=== PATIENT | female | born 1940 | race Caucasian/White ===

== ENCOUNTER → 2016-12-24 | Outpatient (CLI) | payer OTHER ==
[~2016-12-24] MED LIST: HYDR-3240 PO; IBUP100T6 PO; LEVO50TA5 PO; LEVO750T26 PO; LEVO75TA PO; LIOT50TA2 PO; METO25TA35 PO
== END | disposition home or self-care (01) ==
LOC: CFH 12:24 → EDSTATUS 12:30
PROVIDERS: ATTEND Internal Medicine Cardiovascular Disease
DX: J90 Pleural effusion, not elsewhere classified (principal); I07.1 Rheumatic tricuspid insufficiency; N85.4 Malposition of uterus; Z80.41 Family history of malignant neoplasm of ovary
CPT/HCPCS: 71020; 76830; 93306

== ENCOUNTER 2018-02-23 10:10 | Inpatient (IN) | payer OTHER, MEDICARE ==
[~2018-02-23] VITALS: Ht 160 cm; Wt 70.2 kg
[2018-02-23] MEDS ORDERED: KETOROLAC 30 MG/1 ML ONE (10:48)
[2018-02-23 10:58] LABS: BASOPHILS # (AUTO) 0.04 x10^3/uL (0-0.1); BASOPHILS % (AUTO) 0 % (0-1); EOSINOPHILS # (AUTO) 0.08 x10^3/uL (0-0.4); EOSINOPHILS % (AUTO) 1 % (1-7); LYMPHOCYTES # (AUTO) 1.57 x10^3/uL (1-3.4); LYMPHOCYTES % (AUTO) 19 % (22-44); MD NO; MEAN CORPUSCULAR HEMOGLOBIN 31.4 pg (27.0-34.8); MEAN CORPUSCULAR HGB CONC 33.9 g/dL (32.4-35.8); MEAN CORPUSCULAR VOLUME 92.6 fL (80-100); MEAN PLATELET VOLUME 8.4 fL (7.4-10.4); MONOCYTES # (AUTO) 0.87 x10^3/uL (0.2-0.8); MONOCYTES % (AUTO) 10 % (2-9); NEUTROPHILS # (AUTO) 5.96 x10^3/uL (1.8-6.8); NEUTROPHILS % (AUTO) 70 % (42-75); PLATELET COUNT 287 x10^3/uL (130-400); RED BLOOD COUNT 4.74 x10^6/uL (3.82-5.3); RED CELL DISTRIBUTION WIDTH 13.9 % (9.6-15.2)
[2018-02-23] MEDS ORDERED: KETOROLAC 30 MG/1 ML IVPush ONE (11:00)
[2018-02-23 11:10] LABS: ALANINE AMINOTRANSFERASE 26 U/L (12-78); ALBUMIN 3.5 g/dL (3.4-5.0); ANION GAP 10 mmol/L (5-15); CHLORIDE 108 mmol/L (98-107)
[2018-02-23 11:14] LABS: ALKALINE PHOSPHATASE 109 U/L (45-117); BILIRUBIN,TOTAL 0.6 mg/dL (0.2-1.0); TOTAL PROTEIN 7.5 g/dL (6.4-8.2); TROPONIN I < 0.015 ng/mL (0.000-0.045)
[2018-02-23] MEDS ORDERED: HEPARIN 5,000 UNITS/ML, 1ML SQ SCH (13:30)
[2018-02-23] MEDS ORDERED: hydrALAzine 20 MG/ML, 1ML IVPush PRN (13:30)
[2018-02-23] MEDS ORDERED: ACETAMINOPHEN 325 MG TABLET PO PRN (13:30)
[2018-02-23] MEDS ORDERED: LABETALOL 5MG/ML, 20ML IVPush PRN (13:30)
[2018-02-23 13:50] LABS: TROPONIN I < 0.015 ng/mL (0.000-0.045)
[2018-02-23 14:46] VITALS: BP 110/77
[2018-02-23] MEDS ORDERED: LIOT5TAB3 PO (14:52)
[2018-02-23] MEDS ORDERED: ATOR20TA PO (14:55)
[2018-02-23] MEDS: RIVAROXABAN 15 MG TABLET PO SCH (17:06)
[2018-02-23 19:30] LABS: TROPONIN I < 0.015 ng/mL (0.000-0.045)
[2018-02-23] MEDS: KETOROLAC 30 MG/1 ML IV PRN (19:43)
[2018-02-23 20:00] VITALS: BP 118/67
[2018-02-24 02:29] VITALS: BP 118/69
[2018-02-24 05:26] LABS: ANION GAP 9 mmol/L (5-15); BASOPHILS # (AUTO) 0.03 x10^3/uL (0-0.1); BASOPHILS % (AUTO) 1 % (0-1); CALCIUM 8.9 mg/dL (8.5-10.1); CHLORIDE 108 mmol/L (98-107); EOSINOPHILS # (AUTO) 0.18 x10^3/uL (0-0.4); EOSINOPHILS % (AUTO) 3 % (1-7); LYMPHOCYTES # (AUTO) 2.06 x10^3/uL (1-3.4); LYMPHOCYTES % (AUTO) 39 % (22-44); MD NO; MEAN CORPUSCULAR VOLUME 94.1 fL (80-100); MEAN PLATELET VOLUME 8.8 fL (7.4-10.4); MONOCYTES # (AUTO) 0.74 x10^3/uL (0.2-0.8); MONOCYTES % (AUTO) 14 % (2-9); NEUTROPHILS % (AUTO) 43 % (42-75); PLATELET COUNT 250 x10^3/uL (130-400); RED CELL DISTRIBUTION WIDTH 14.3 % (9.6-15.2)
[2018-02-24 05:27] LABS: CREATININE 0.77 mg/dL (0.55-1.02)
[2018-02-24] MEDS: KETOROLAC 30 MG/1 ML IV PRN (06:37)
[2018-02-24 08:30] VITALS: BP 112/72
[2018-02-24] MEDS: RIVAROXABAN 15 MG TABLET PO SCH (09:30)
[2018-02-24] MEDS ORDERED: RIVA1TAB PO (12:57)
== END 2018-02-24 16:55 | disposition home or self-care (01) | DRG 176 ==
LOC: ED 11:30 → OBSVTOIN 13:11 → EDIP 13:11 → 4WST 14:29 → 4EST 14:45 → 2N 14:55 → 4EST 14:58 → DCLOUNGE 02-24 16:28
PROVIDERS: ADMIT Hospitalist; ATTEND Hospitalist
DX: I26.99 Other pulmonary embolism without acute cor pulmonale (principal); I50.30 Unspecified diastolic (congestive) heart failure; E03.9 Hypothyroidism, unspecified; I48.0 Paroxysmal atrial fibrillation; I11.0 Hypertensive heart disease with heart failure; Z87.01 Personal history of pneumonia (recurrent); Z79.899 Other long term (current) drug therapy
CPT/HCPCS: 36415; 71045; 71275; 80048; 80053; 83735; 83880; 84100; 84484; 85025; 85379; 93005; 93306; 96374; G0378; J1644; J1885

== ENCOUNTER → 2018-05-17 | Outpatient (CLI) | payer OTHER ==
[~2018-05-17] MED LIST changes: +ATOR20TA PO; +LIOT5TAB3 PO; +RIVA1TAB PO
== END | disposition home or self-care (01) ==
LOC: CFH 10:21
PROVIDERS: ATTEND Internal Medicine Cardiovascular Disease
DX: R06.02 Shortness of breath (principal); R07.1 Chest pain on breathing
CPT/HCPCS: 71046